=== PATIENT | male | born 1945 | race Caucasian/White ===

== ENCOUNTER 2018-09-22 09:04 | Day surgery (SDC) | payer MEDICARE ==
[2018-09-22] MEDS ORDERED: fentaNYL 100 MCG/2 ML SDV ONE (09:24)
[2018-09-22] MEDS ORDERED: Propofol 200 MG/20 ML SDV ONE (09:24)
[2018-09-22] MEDS ORDERED: Midazolam 1 MG/ML 2 ML SDV ONE (09:24)
[2018-09-22] MEDS ORDERED: Dextrose 5%-Lactated Ringers 1,000 ML IV SCH (09:45)
[2018-09-22] MEDS ORDERED: Bupivacaine 0.5% 50 ML MDV ONE (10:40)
[2018-09-22] MEDS ORDERED: Lidocaine 1% with EPINEPHrine 1:100,000 50 ML MDV ONE (10:40)
--- NOTE | 2018-09-22 14:10 | OR ---
CORRECTED REPORT DATE OF PROCEDURE: 09/22/2018 PREOPERATIVE DIAGNOSIS: A 5-cm subcutaneous mass posterior to left axilla. POSTOPERATIVE DIAGNOSIS: A 5-cm subcutaneous mass posterior to left axilla consistent with lipoma. PROCEDURE: Excision of 5-cm subcutaneous mass posterior to left axilla. ANESTHESIA: IV anesthesia with monitored anesthesia care. SURGEON: Marco Antonio Palomo MD INDICATION: This 72-year-old white male noticed a mass just to the posterior of his left axilla. It is not tender. It is deep in the subcutaneous tissue. It is soft. It is mobile. He is here to have it excised. I counseled him for excision of this including risks and alternatives and he gave his informed consent to proceed. PROCEDURE IN DETAIL: The patient was placed in the right lateral decubitus position. IV anesthesia was administered by the Anesthesia Service. His left flank, shoulder, and axilla as well as proximal arm were prepped and draped in usual sterile fashion. Time-out was held. Lidocaine 1% with epinephrine in a 50:50 mix with 0.5% Marcaine was infiltrated over the mass. A transverse incision over the mass was made which was parallel to the long axis of the mass. This was carried deep bluntly to the mass which was found to be fatty tissue consistent with lipoma. It was dissected free with electrocautery and delivered from the field. The incision looked well, was irrigated and suctioned dry. The skin was closed with a subcuticular stitch of 4-0 Vicryl. Dermabond was applied. The patient was placed supine and brought from the operating room in good condition having tolerated the procedure well. ADDENDUM: Diameter is 5cm. Longest axis is 5cm. Margins none Marco Antonio Palomo MD /[id number]
== END 2018-09-22 12:59 | disposition home or self-care (01) ==
LOC: JP.SDS 09:04
PROVIDERS: ATTEND Surgery
DX: D17.1 Benign lipomatous neoplasm of skin and subcutaneous tissue of trunk (principal); N18.9 Chronic kidney disease, unspecified; Z90.5 Acquired absence of kidney
CPT/HCPCS: 21552; 88304; J2250; J2704; J3010; J3490; J7042

== ENCOUNTER 2024-09-09 11:51 | Inpatient (IN) | payer MEDICARE ==
[2024-09-09] MEDS: Nozin Nasal Sanitizer NASBOTH SCH ×2 (12:27→20:32)
[2024-09-09] MEDS: Lactated Ringers 1,000 ML IV SCH (12:27)
[2024-09-09] MEDS ORDERED: Propofol 200 MG/20 ML SDV ONE ×2 (12:35→16:13)
[2024-09-09] MEDS ORDERED: Midazolam 1 MG/ML 2 ML SDV ONE (12:35)
[2024-09-09] MEDS ORDERED: fentaNYL 100 MCG/2 ML SDV ONE (12:35)
[2024-09-09] MEDS ORDERED: Magnesium Hydroxide 400 MG/5 ML Susp 30 ML Cup PO PRN (13:21)
[2024-09-09] MEDS ORDERED: Morphine 2 MG/ML SYRINGE IV PRN (13:21)
[2024-09-09] MEDS: ceFAZolin 2 GM in Premix Bag 1 BAG IV ONE (15:35)
[2024-09-09] MEDS ORDERED: Lactated Ringers 1,000 ML ONE (16:10)
[2024-09-09] MEDS: Bupivacaine 0.5% 50 ML MDV ONE (16:31)
[2024-09-09] MEDS ORDERED: Sodium Chloride 0.9% 10 ML ONE (16:55)
[2024-09-09] MEDS ORDERED: ePHEDrine 50 MG/ML SDV ONE (16:55)
[2024-09-09] MEDS: Acetaminophen 325 MG Tab PO SCH (18:18)
[2024-09-09] MEDS: oxyCODONE 5 MG Tab PO PRN ×2 (20:29→23:00)
[2024-09-09] MEDS: Sodium Chloride 0.9% 1,000 ML IV SCH (20:31)
[2024-09-09] MEDS: Ondansetron 4 MG/2 ML SDV IVPUSH PRN (21:29)
[2024-09-09] MEDS: ceFAZolin 2 GM in Premix Bag 1 BAG IV SCH (23:16)
[2024-09-10 05:59] LABS: HEMATOCRIT 36.8 % (38.4-49.7); HEMOGLOBIN 12.6 g/dL (12.9-16.9); MEAN CORPUSCULAR HEMOGLOBIN 33.5 pg (31.6-35.5); MEAN CORPUSCULAR HGB CONC 34.2 g/dL (31.6-35.5); MEAN CORPUSCULAR VOLUME 97.9 fL (81.4-99.0); RED BLOOD CELL COUNT 3.76 M/uL (4.14-5.76); WHITE BLOOD CELL COUNT,WBC 8.9 K/uL (3.2-11.0)
[2024-09-10] MEDS: Cyclobenzaprine 10 MG Tab PO PRN (07:52)
[2024-09-10] MEDS: Docusate Sodium 100 MG Cap PO PRN (07:52)
[2024-09-10] MEDS: Apixaban 2.5 MG Tab PO SCH (08:01)
[2024-09-10] MEDS: Cholecalciferol (Vitamin D3) 25 MCG Tab PO SCH (08:01)
[2024-09-10] MEDS: Multivitamins with Iron/Calcium/Folic Acid/Minerals Tab PO SCH (08:01)
== END 2024-09-11 08:00 | disposition home or self-care (01) | DRG 470 ==
LOC: JP.SDS 11:51 → JP.MS 13:21 → JP.SDS 09-10 14:35 → JP.MS 09-10 14:36
PROVIDERS: ADMIT Specialist; ATTEND Specialist
PROC: 8E0YXBZ Computer Assisted Procedure of Lower Extremity (ICD-10-PCS; 2024-09-09)
PROC: 0SRB0JA Replacement of Left Hip Joint with Synthetic Substitute, Uncemented, Open Approach (ICD-10-PCS; principal; 2024-09-09 13:30)
DX: M16.12 Unilateral primary osteoarthritis, left hip (principal); N18.31 Chronic kidney disease, stage 3a; H91.93 Unspecified hearing loss, bilateral; D63.1 Anemia in chronic kidney disease; G47.30 Sleep apnea, unspecified; Z85.038 Personal history of other malignant neoplasm of large intestine; Z90.5 Acquired absence of kidney; Z85.528 Personal history of other malignant neoplasm of kidney
CPT/HCPCS: 20985; 27130; 36415; 72170 ×2; 85027; 97161; 97530; A9270 ×15; C1713 ×4; C1776 ×5; J0665; J0690 ×3; J2250; J2405; J2704 ×2; J3010; J7030 ×2; J7120 ×2; 01214-QZ; 97165-GO; 97535-GO